=== PATIENT | male | born 1975 | race Caucasian/White ===

== ENCOUNTER 2019-02-11 15:41 | Day surgery (SDC) | payer SELFPAY ==
[2019-02-11] VITALS (10 sets, daily range): BP systolic 128–151; BP diastolic 82–104
[~2019-02-11] VITALS: Ht 170.2 cm; Wt 68.0 kg
[2019-02-11] MEDS ORDERED: fentaNYL INJECTION 100 MCG/2 ML AMP IVP STA (15:58)
[2019-02-11] MEDS ORDERED: KETOROLAC 30 MG/ML VIAL IVP STA (15:58)
[2019-02-11] MEDS ORDERED: NS IV 1000 ML 1,000 ML IV ONE (15:58)
[2019-02-11] MEDS ORDERED: ONDANSETRON 4 MG/2 ML (SDV) Z0FRAN IVP ONE (16:00)
[2019-02-11 16:05] LABS: BASOPHILS # (AUTO) 0.1 10^3/uL (0.0-0.1); BASOPHILS % (AUTO) 1 % (0-10); EOSINOPHILS # (AUTO) 0.2 10^3/uL (0.0-0.3); EOSINOPHILS % (AUTO) 2 % (0-10); HEMATOCRIT 48 % (40-54); HEMOGLOBIN 16.2 G/DL (13.3-17.7); LYMPHOCYTES # (AUTO) 3.9 X 10^3 (1.0-4.0); LYMPHOCYTES % (AUTO) 36 % (12-44); MEAN CORPUSCULAR HEMOGLOBIN 33 PG (25-34); MEAN CORPUSCULAR HGB CONC 34 G/DL (32-36); MEAN CORPUSCULAR VOLUME 96 FL (80-99); MEAN PLATELET VOLUME 11.1 FL (7.4-10.4); MONOCYTES # (AUTO) 0.9 X 10^3 (0.0-1.0); MONOCYTES % (AUTO) 8 % (0-12); NEUTROPHILS # (AUTO) 5.7 X 10^3 (1.8-7.8); NEUTROPHILS % (AUTO) 53 % (42-75); PLATELET COUNT 190 10^3/uL (130-400); WHITE BLOOD COUNT 10.8 10^3/uL (4.3-11.0)
--- NOTE | 2019-02-11 16:11 | ED GU-Male ---
General Chief Complaint: Back Problems Stated Complaint: LOWER BACK PAIN Nursing Triage Note: Pt presents to the ER with complaints of right sided flank/back pain 02/09 that started 4 hours ago. Pt has a history of kidney stones and reports having them summer. Pt also reports having urine hesitancy. Source: patient Exam Limitations: no limitations History of Present Illness Date Seen by Provider: Feb 11, 2019 Time Seen by Provider: 15:57 Initial Comments Here with right flank pain acute onset 4 hours ago. Radiates to the tip of his penis. States it feels like a kidney stone. Has had nausea but no vomiting. Denies any blood in his urine currently. Denies fever or chills. Timing/Duration: this afternoon Severity/Quality: moderate, severe, aching Location: right flank Radiation: urethral Activities at Onset: none Prior Genitourinary Problems: none Sexual [place] History: single partner Modifying Factors: Worsens With Urinating Associated Symptoms: abdominal pain, dysuria; No fever/chills Allergies and Home Medications Allergies Coded Allergies: No Known Drug Allergies (Unverified , 02/11/19) Patient Home Medication List Home Medication List Reviewed: Yes Review of Systems Review of Systems Constitutional: see HPI; No chills, No fever EENTM: no symptoms reported Respiratory: no symptoms reported Cardiovascular: no symptoms reported Gastrointestinal: abdominal pain; No diarrhea; nausea; No vomiting Genitourinary: flank pain; denies hematuria; pain Musculoskeletal: no symptoms reported Skin: no symptoms reported All Other Systemes Reviewed Negative Unless Noted: Yes Past Wuxyjvw-Emmkic-Rvpomf Hx Past Med/Social Hx: Reviewed Nursing Past Med/Soc Hx Patient Social History Alcohol Use: Denies Use Recreational Drug Use: No Smoking Status: Current Everyday Smoker Recent Foreign Travel: No Contact w/Someone Who Travel: No Recent Infectious Disease Expo: No Past Medical History Surgeries: No Respiratory: No Cardiac: No Neurological: No Genitourinary: Yes Kidney Stones Gastrointestinal: No Musculoskeletal: No Endocrine: No HEENT: No Cancer: No Psychosocial: No Family Medical History Reviewed Nursing Family Hx Physical Exam Vital Signs Vital Signs - First Documented 02/11/19 15:52 Temp 97.1 Pulse 100 Resp 18 B/P (MAP) 147/108 (121) Pulse Ox 97 Capillary Refill : Less Than 3 Seconds Height, Weight, BMI Height: 5'7.00" Weight: 150lbs. oz. 68.534256nv; BMI Method:Stated General Appearance: WD/WN, moderate distress HEENT: PERRL/EOMI, pharynx normal Neck: full range of motion, supple Cardiovascular: regular rate, rhythm, no murmur Respiratory: lungs clear, normal breath sounds Gastrointestinal: normal bowel sounds, soft, no pulsatile mass; No guarding, No rebound; tenderness (right lower quadrant and right flank) Male: normal genitalia, no hernia, inguinal tenderness (mild on right); No testicular tenderness Back: normal inspection, no CVA tenderness, no vertebral tenderness Extremities: non-tender, normal inspection Neurologic/Psychiatric: alert, oriented x 3 Skin: normal color, warm/dry Progress/Results/Core Measures Suspected Sepsis Recent Fever Within 48 Hours: No Infection Criteria Present: None New/Unexplained Altered Menta: No Sepsis Screen: No Definite Risk SIRS Temperature:97.1 Pulse: 100 Respiratory Rate: 18 Laboratory Tests 02/11/19 15:38: White Blood Count 10.8 Blood Pressure 147 /108 Mean: 121 Laboratory Tests 02/11/19 15:38: Creatinine 1.11, Platelet Count 190, Total Bilirubin 0.3 Results/Orders Lab Results Laboratory Tests Test 02/11/19 15:38 02/11/19 16:13 02/11/19 16:15 Range/Units White Blood Count 10.8 4.3-11.0 10^3/uL Red Blood Count 4.95 4.35-5.85 10^6/uL Hemoglobin 16.2 13.3-17.7 G/DL Hematocrit 48 40-54 % Mean Corpuscular Volume 96 80-99 FL Mean Corpuscular Hemoglobin 33 25-34 PG Mean Corpuscular Hemoglobin Concent 34 32-36 G/DL Red Cell Distribution Width 12.0 10.0-14.5 % Platelet Count 190 130-400 10^3/uL Mean Platelet Volume 11.1 H 7.4-10.4 FL Neutrophils (%) (Auto) 53 42-75 % Lymphocytes (%) (Auto) 36 12-44 % Monocytes (%) (Auto) 8 0-12 % Eosinophils (%) (Auto) 2 0-10 % Basophils (%) (Auto) 1 0-10 % Neutrophils # (Auto) 5.7 1.8-7.8 X 10^3 Lymphocytes # (Auto) 3.9 1.0-4.0 X 10^3 Monocytes # (Auto) 0.9 0.0-1.0 X 10^3 Eosinophils # (Auto) 0.2 0.0-0.3 10^3/uL Basophils # (Auto) 0.1 0.0-0.1 10^3/uL Sodium Level 141 135-145 MMOL/L Potassium Level 4.3 3.6-5.0 MMOL/L Chloride Level 105 98-107 MMOL/L Carbon Dioxide Level 25 21-32 MMOL/L Anion Gap 11 5-14 MMOL/L Blood Urea Nitrogen 8 7-18 MG/DL Creatinine 1.11 0.60-1.30 MG/DL Estimat Glomerular Filtration Rate > 60 BUN/Creatinine Ratio 7 Glucose Level 85 70-105 MG/DL Calcium Level 10.0 8.5-10.1 MG/DL Corrected Calcium 8.5-10.1 MG/DL Total Bilirubin 0.3 0.1-1.0 MG/DL Aspartate Amino Transf (AST/SGOT) 29 5-34 U/L Alanine Aminotransferase (ALT/SGPT) 59 H 0-55 U/L Alkaline Phosphatase 98 40-136 U/L Total Protein 8.0 6.4-8.2 GM/DL Albumin 5.0 H 3.2-4.5 GM/DL C-Reactive Protein High Sensitivity 0.12 0.00-0.50 MG/DL Urine Color YELLOW Urine Clarity CLEAR Urine pH 6 5-9 Urine Specific [place] 1.010 L 1.016-1.022 Urine Protein NEGATIVE NEGATIVE Urine Glucose (UA) NEGATIVE NEGATIVE Urine Ketones NEGATIVE NEGATIVE Urine Nitrite NEGATIVE NEGATIVE Urine Bilirubin NEGATIVE NEGATIVE Urine Urobilinogen NORMAL NORMAL MG/DL Urine Leukocyte Esterase NEGATIVE NEGATIVE Urine RBC (Auto) NEGATIVE NEGATIVE Urine RBC NONE /HPF Urine WBC RARE /HPF Urine Squamous Epithelial Cells RARE /HPF Urine Crystals NONE /LPF Urine Bacteria NEGATIVE /HPF Urine Casts NONE /LPF Urine Mucus NEGATIVE /LPF Urine Culture Indicated NO My Orders Orders - OTIS VALDEZ MD Cbc With Automated Diff (02/11/19 15:58) Comprehensive Metabolic Panel (02/11/19 15:58) Ua Culture If Indicated (02/11/19 15:58) Ed Iv/Invasive Line Start (02/11/19 15:58) Ns Iv 1000 Ml (Sodium Chloride 0.9%) (02/11/19 15:58) Fentanyl Injection (Sublimaze Injection (02/11/19 15:58) Ketorolac Injection (Toradol Injection) (02/11/19 15:58) Abdomen/Kub 1view (02/11/19 15:58) Ct Abd/Pelvis Wo(Kidney Stone) (02/11/19 15:58) Ondansetron Injection (Zofran Injectio (02/11/19 16:00) Hs C Reactive Protein (02/11/19 16:55) Lorazepam (02/11/19 17:40) Lorazepam Injection (Ativan Injection) (02/11/19 17:45) Medications Given in ED Current Medications Medications Dose Ordered Sig/Temo Route Start Time Stop Time Status Last Admin Dose Admin Ondansetron HCl 4 mg ONCE ONCE IVP 02/11/19 16:00 02/11/19 16:02 DC 02/11/19 16:13 4 MG Sodium Chloride 1,000 ml @ 0 mls/hr Q0M ONCE IV 02/11/19 15:58 02/11/19 16:02 DC 02/11/19 16:13 1,000 MLS/HR Vital Signs/I&O 02/11/19 15:52 Temp 97.1 Pulse 100 Resp 18 B/P (MAP) 147/108 (121) Pulse Ox 97 Capillary Refill : Less Than 3 Seconds Blood Pressure Mean: 121 Progress Note : Progress Note Seen and evaluated. IV, labs, UA, normal saline 1 L bolus, Zofran 4 mg IV, Toradol 30 mg IV and fentanyl [address] abdomen and pelvis kidney stone protocol ordered as well as KUB. Monitor patient. 1740: I have talked at length with the patient. CT does not show stones. There is concern for inflammation at the base of the appendix and potentially the tip but not outside of normal limits currently. I did discuss this with the surgeon on-call, Dr. Kelly. We have repeated the films together. Patient is still in moderate pain at 6 out of 10 after pain medicines. He has had pain that has been intermittent over the last couple of months. Certainly much worse today. There is no findings for kidney stones at all. I do have concerns about his appendix. Dr. Kelly does as well. This was discussed with the patient and ultimately the patient will be taken to the OR for appendectomy given his pain and findings. Dr. Kelly will come in. Our crew has been called. Patient is in agreement with the plan as well as his . Diagnostic Imaging Diagonstic Imaging: CT Plain Films/CT/US/NM/MRI: abdomen, pelvis Comments NAME: ANTONIO DUMAS [facility] REC#: [id number] PT STATUS: REG ER : 1975 PHYSICIAN: OTIS VALDEZ MD ADMIT DATE: 02/11/19/ER Draft Date of Exam:02/11/19 CT ABD/PELVIS WO(KIDNEY STONE) PROCEDURE: CT urinary tract, rule out kidney stone. TECHNIQUE: Multiple contiguous axial images were obtained through the abdomen and pelvis without the use of intravenous contrast. Auto Exposure Controls were utilized during the CT exam to meet ALARA standards for radiation dose reduction. INDICATION: Right-sided flank pain. No hematuria. CORRELATION STUDY: None. FINDINGS: LOWER THORAX: Clear. LIVER: Unremarkable. GALLBLADDER: Present and unremarkable. No bile duct dilatation. SPLEEN: Unremarkable. PANCREAS: Unremarkable. ADRENAL GLANDS: Unremarkable. KIDNEYS: Normal configuration. No calcification or obstruction. ABDOMINAL AORTA: Unremarkable, nonaneurysmal. GASTROINTESTINAL TRACT: Stomach is decompressed with resultant gastric wall thickening. Small bowel with a few fluid-filled loops of bowel but nonobstructed in its appearance. Colon is unremarkable with normal appendix in the right lower quadrant. No abdominal ascites or free air. URINARY BLADDER: Unremarkable. REPRODUCTIVE: Prostate gland is unremarkable. OSSEOUS STRUCTURES: No acute abnormality. OTHER: None. IMPRESSION: 1. Negative for acute abnormality of the abdomen or pelvis on noncontrast CT imaging. Dictated on workstation # [id number] Dict: 02/11/19 1638 Trans: 02/11/19 1700 [id number] Interpreted by: ROMELIA GREEN DO Electronically signed by: Diagonstic Imaging: Xray Plain Films/CT/US/NM/MRI: abdomen Comments NAME: ANTONIO DUMAS [facility] REC#: [id number] PT STATUS: REG ER : 1975 PHYSICIAN: OTIS VALDEZ MD ADMIT DATE: 02/11/19/ER Signed Date of Exam: 02/11/19 ABDOMEN/KUB 1VIEW INDICATION: Right flank pain today. TECHNIQUE: Single supine view of the abdomen at 04:28 p.m. CORRELATION STUDY: None. FINDINGS: Imaging of the abdomen demonstrates the bowel gas pattern to be unremarkable and without evidence for obstruction. No significant differential air-fluid levels. No evidence for free air. No pathologic intra-abdominal calcifications. IMPRESSION: 1. Unremarkable appearing single supine view of the abdomen. Dictated by: Dictated on workstation # [id number] Dict: 02/11/19 1645 Trans: 02/11/19 1719 Interpreted by: ROMELIA GREEN DO Electronically signed by: ROMELIA GREEN DO 02/11/19 1719 Departure Communication (Admissions) Time/Spoke to Admitting Phy: 17:42 Impression Primary Impression: Appendicitis Qualified Codes: K35.30 - Acute appendicitis with localized peritonitis, without perforation or gangrene Disposition: ADMITTED INPATIENT Condition: Stable Admissions Decision to Admit Reason: Admit from ER (General) Decision to Admit/Date: Feb 11, 2019 Time/Decision to Admit Time: 17:42 Departure-Patient Inst. Referrals: NO,LOCAL PHYSICIAN (PCP/Family) Primary Care Physician OTIS VALDEZ MD Feb 11, 2019 16:11
[2019-02-11 16:25] LABS: ALANINE AMINOTRANSFERASE 59 U/L (0-55); ALKALINE PHOSPHATASE 98 U/L (40-136); BILIRUBIN,TOTAL 0.3 MG/DL (0.1-1.0); BUN/CREATININE RATIO 7; CARBON DIOXIDE 25 MMOL/L (21-32); CHLORIDE 105 MMOL/L (98-107); CREATININE SERUM 1.11 MG/DL (0.60-1.30); GFR ESTIMATED > 60; GLUCOSE 85 MG/DL (70-105); POTASSIUM 4.3 MMOL/L (3.6-5.0); SODIUM 141 MMOL/L (135-145)
[2019-02-11 16:27] LABS: BILIRUBIN,URINE NEGATIVE (NEGATIVE); CLARITY,URINE CLEAR; COLOR,URINE YELLOW; GLUCOSE, URINE (UA) NEGATIVE (NEGATIVE); KETONES,URINE NEGATIVE (NEGATIVE); LEUKOCYTE ESTERASE ,URINE NEGATIVE (NEGATIVE); NITRITE,URINE NEGATIVE (NEGATIVE); PH,URINE 6 (5-9); PROTEIN,URINE NEGATIVE (NEGATIVE); UROBILINOGEN,URINE NORMAL (NORMAL)
[2019-02-11 16:40] LABS: BACTERIA,URINE NEGATIVE /HPF; SQUAMOUS EPITHELIAL CELL,UR RARE /HPF; WBC,URINE RARE /HPF
--- NOTE | 2019-02-11 16:52 | Diagnostic Imaging Report ---
INDICATION: Right flank pain today. TECHNIQUE: Single supine view of the abdomen at 04:28 p.m. CORRELATION STUDY: None. FINDINGS: Imaging of the abdomen demonstrates the bowel gas pattern to be unremarkable and without evidence for obstruction. No significant differential air-fluid levels. No evidence for free air. No pathologic intra-abdominal calcifications. IMPRESSION: 1. Unremarkable appearing single supine view of the abdomen. Dictated by: Dictated on workstation # [id number]
--- NOTE | 2019-02-11 17:01 | Diagnostic Imaging Report ---
PROCEDURE: CT urinary tract, rule out kidney stone. TECHNIQUE: Multiple contiguous axial images were obtained through the abdomen and pelvis without the use of intravenous contrast. Auto Exposure Controls were utilized during the CT exam to meet ALARA standards for radiation dose reduction. INDICATION: Right-sided flank pain. No hematuria. CORRELATION STUDY: None. FINDINGS: LOWER THORAX: Clear. LIVER: Unremarkable. GALLBLADDER: Present and unremarkable. No bile duct dilatation. SPLEEN: Unremarkable. PANCREAS: Unremarkable. ADRENAL GLANDS: Unremarkable. KIDNEYS: Normal configuration. No calcification or obstruction. ABDOMINAL AORTA: Unremarkable, nonaneurysmal. GASTROINTESTINAL TRACT: Stomach is decompressed with resultant gastric wall thickening. Small bowel with a few fluid-filled loops of bowel but nonobstructed in its appearance. Colon is unremarkable with normal appendix in the right lower quadrant. No abdominal ascites or free air. URINARY BLADDER: Unremarkable. REPRODUCTIVE: Prostate gland is unremarkable. OSSEOUS STRUCTURES: No acute abnormality. OTHER: None. IMPRESSION: 1. Negative for acute abnormality of the abdomen or pelvis on noncontrast CT imaging. Dictated by: Dictated on workstation # [id number]
[2019-02-11] MEDS ORDERED: LORazepam INJ 2 MG/ML (ATIVAN) VIAL IVP ONE (17:45)
[2019-02-11] MEDS ORDERED: MIDAZOLAM 2 MG/2 ML (VERSED) VIAL ONE (17:55)
[2019-02-11] MEDS ORDERED: fentaNYL INJECTION 100 MCG/2 ML AMP ONE (17:55)
[2019-02-11] MEDS ORDERED: BUP/EPI 0.5% 1:200,000 (SENSORCAINE) 30 ML VIAL ONE (18:04)
[2019-02-11] MEDS ORDERED: LACTATED RINGERS 1,000 ML IV PRN (18:09)
[2019-02-11] MEDS ORDERED: morphine INJ 10 MG/ML 1ML (SYR OR VIAL) IVP ONE (18:15)
[2019-02-11] MEDS ORDERED: MEPERIDINE (DEMEROL) INJ 50 MG/ML IVP ONE (18:15)
[2019-02-11] MEDS ORDERED: fentaNYL INJECTION 100 MCG/2 ML AMP IVP ONE (18:15)
[2019-02-11] MEDS ORDERED: ONDANSETRON 4 MG/2 ML (SDV) Z0FRAN IVP PRN (18:15)
[2019-02-11] MEDS ORDERED: ceFAZolin INJECTION 1,000 MG ONE (18:54)
[2019-02-11] MEDS ORDERED: metroNIDAZOLE 500MG/100ML IVPB 100 ML ONE (18:54)
--- NOTE | 2019-02-11 18:55 | History & Physical-Surgical ---
History of Present Illness History of Present Illness Reason for visit/HPI seen and evaluated in ed per request of Dr. Cardozo for rlq abd pain. 43 year old male that began having pain in rlq about 1130 today. Patient having moderate pain. Worse in some positions. Nothing really making it worse. He rated 10/10 now about 7/10. Has had intermittent pain on and off last few months. Pain radiates down into penis. Patient had ct scan that I along with Dr. Cardozo reviewed and appears to may have an appendicolith and some thckening of a small portion of the appendix. He is still in pain. Denies n/v fever sweats chills shortness of breath or chest pain at this time. Date of Admission t Date Seen by a Provider: Feb 11, 2019 Time Seen by a Provider: 18:56 I consulted on this patient on 02/11/19 18:48 Attending Physician Denny Kelly DO, FACOS Admitting Physician No,Local Physician Consult Allergies and Home Medications Allergies Coded Allergies: No Known Drug Allergies (Unverified , 02/11/19) Patient Home Medication List Home Medication List Reviewed: Yes Past Wbzkxao-Echfyd-Ozyrsk Hx Patient Social History Alcohol Use: Denies Use Recreational Drug Use: No Smoking Status: Current Everyday Smoker 2nd Hand Smoke Exposure: No Recent Foreign Travel: No Contact w/Someone Who Travel: No Recent Infectious Disease Expo: No Recent Hopitalizations: No Seasonal Allergies Seasonal Allergies: No Surgeries History of Surgeries: No Surgeries: Orthopedic Respiratory History of Respiratory Disorde: No Cardiovascular History of Cardiac Disorders: No Neurological History of Neurological Disord: No Genitourinary History of Genitourinary Disor: Yes Genitourinary Disorders: Kidney Stones Gastrointestinal History of Gastrointestinal Di: No Gastrointestinal Disorders: Hiatal Hernia Musculoskeletal History of Musculoskeletal Dis: No Endocrine History of Endocrine Disorders: No HEENT History of HEENT Disorders: No Cancer History of Cancer: No Psychosocial History of Psychiatric Problem: No Blood Transfusions History of Blood Disorders: No Family Medical History Significant Family History: No Pertinent Family Hx Review of Systems Constitutional: no symptoms reported EENTM: no symptoms reported Respiratory: no symptoms reported Cardiovascular: no symptoms reported Gastrointestinal: see HPI Genitourinary: no symptoms reported Musculoskeletal: no symptoms reported Skin: no symptoms reported Psychiatric/Neurological: No Symptoms Reported Physical Exam Vital Signs Vital Signs - First Documented 02/11/19 15:52 Temp 97.1 Pulse 100 Resp 18 B/P (MAP) 147/108 (121) Pulse Ox 97 Capillary Refill : Less Than 3 Seconds Height, Weight, BMI Height: 5'7.00" Weight: 150lbs. oz. 68.975999ya; BMI Method:Stated General Appearance: No Apparent Distress, Anxious HEENT: PERRL/EOMI Neck: Normal Inspection, Non Tender Respiratory: Chest Non Tender, No Accessory Muscle Use, No Respiratory Distress Cardiovascular: Regular Rate, Rhythm Gastrointestinal: Soft, Tenderness (right lower quadrant, no guarding or rebounding.) Rectal: Deferred Back: No CVA Tenderness Extremity: Normal Inspection, Non Tender Neurologic/Psychiatric: Alert, Oriented x3, No Motor/Sensory Deficits, Normal Mood/Affect, rehabilitation therapy aide II-XII Norm as Tested Skin: Normal Color, Warm/Dry Lymphatic: No Adenopathy Data Review Labs Laboratory Tests 02/11/19 15:38: White Blood Count 10.8, Red Blood Count 4.95, Hemoglobin 16.2, Hematocrit 48, Mean Corpuscular Volume 96, Mean Corpuscular Hemoglobin 33, Mean Corpuscular Hemoglobin Concent 34, Red Cell Distribution Width 12.0, Platelet Count 190, Mean Platelet Volume 11.1H, Neutrophils (%) (Auto) 53, Lymphocytes (%) (Auto) 36, Monocytes (%) (Auto) 8, Eosinophils (%) (Auto) 2, Basophils (%) (Auto) 1, Neutrophils # (Auto) 5.7, Lymphocytes # (Auto) 3.9, Monocytes # (Auto) 0.9, Eosinophils # (Auto) 0.2, Basophils # (Auto) 0.1, Sodium Level 141, Potassium Level 4.3, Chloride Level 105, Carbon Dioxide Level 25, Anion Gap 11, Blood Urea Nitrogen 8, Creatinine 1.11, Estimat Glomerular Filtration Rate > 60, BUN/Creatinine Ratio 7, Glucose Level 85, Calcium Level 10.0, Corrected Calcium , Total Bilirubin 0.3, Aspartate Amino Transf (AST/SGOT) 29, Alanine Aminotransferase (ALT/SGPT) 59H, Alkaline Phosphatase 98, Total Protein 8.0, Albumin 5.0H 02/11/19 15:58: 02/11/19 16:13: C-Reactive Protein High Sensitivity 0.12 02/11/19 16:15: Urine Color YELLOW, Urine Clarity CLEAR, Urine pH 6, Urine Specific [place] 1.010L, Urine Protein NEGATIVE, Urine Glucose (UA) NEGATIVE, Urine Ketones NEGATIVE, Urine Nitrite NEGATIVE, Urine Bilirubin NEGATIVE, Urine Urobilinogen NORMAL, Urine Leukocyte Esterase NEGATIVE, Urine RBC (Auto) NEGATIVE, Urine RBC NONE, Urine WBC RARE, Urine Squamous Epithelial Cells RARE, Urine Crystals NONE, Urine Bacteria NEGATIVE, Urine Casts NONE, Urine Mucus NEGATIVE, Urine Culture Indicated NO Assessment/Plan Assessment/Plan Admission Diagonsis rlq abdominal pain possible appendicitis physical exam consistent with appendicitis, ct scan reviewed and may have area consistent with appendicitis i discussed risks and benefits of lap appy all other indicated procedures with patient who understands that he may have a normal appendix as well he wishes to proceed to OR for intervention Admission Status: Observation Assessment/Plan rlq abdominal pain possible appendicitis physical exam consistent with appendicitis, ct scan reviewed and may have area consistent with appendicitis i discussed risks and benefits of lap appy all other indicated procedures with patient who understands that he may have a normal appendix as well he wishes to proceed to OR for intervention DENNY KELLY DO Feb 11, 2019 18:55
[2019-02-11] MEDS ORDERED: LACTATED RINGERS 1,000 ML IV SCH (19:00)
[2019-02-11] MEDS ORDERED: ceFAZolin INJECTION 1,000 MG in WATER (STERILE) FOR INJECTION 10 ML IV ONE (19:00)
[2019-02-11] MEDS ORDERED: metroNIDAZOLE 500MG/100ML IVPB IV ONE (19:00)
[2019-02-11] MEDS ORDERED: proPOfol 200 MG/20 ML (DIPRIVAN) VIAL IV ONE (19:23)
[2019-02-11] MEDS ORDERED: LIDOCAINE PF 2% 5 ML (XYLOCAINE) VIAL ONE (19:23)
[2019-02-11] MEDS ORDERED: SUCCINYLCHOLINE INJ 100 MG/5 ML SYR ONE (19:23)
[2019-02-11] MEDS ORDERED: ROCURONIUM 10 MG/ML 5 ML SYRINGE IV ONE (19:23)
[2019-02-11] MEDS ORDERED: SEVOFLURANE (ULTANE) 15 ML INHAL SOLN ONE ×2 (19:23→19:59)
[2019-02-11] MEDS ORDERED: ONDANSETRON 4 MG/2 ML (SDV) Z0FRAN ONE ×2 (19:23→19:45)
[2019-02-11] MEDS ORDERED: GLYCOPYRROLATE 0.2 MG/ML (ROBINUL) 2 ML VIAL ONE (19:50)
[2019-02-11] MEDS ORDERED: NEOSTIGMINE 3 MG/3 ML VIAL ONE (19:50)
[2019-02-11] MEDS ORDERED: DOCU-143 PO (19:56)
[2019-02-11] MEDS ORDERED: ACHD5005 PO (19:56)
--- NOTE | 2019-02-11 19:56 | Progress Note-Post Operative ---
Post-Operative Progess Note Surgeon (s)/Data Technician (s) Surgeon DENNY GUZMAN DO Data Technician: na Pre-Operative Diagnosis rlq abd pain Post-Operative Diagnosis slight rigid appendix Procedure & Operative Findings Date of Procedure 02/11/19 Procedure Performed/Findings lap appendectomy Anesthesia Type gen Estimated Blood Loss Estimated blood loss (mL): min Specimens/Packing Specimens Removed appendix DENNY GUZMAN DO Feb 11, 2019 19:56
--- NOTE | 2019-02-11 19:58 | Discharge Inst-Simple/Standard ---
Discharge Inst-Standard Discharge Medications New, Converted or Re-Newed RX: RX on Chart Patient Instructions/Follow Up Plan of Care/Instructions/FU: 2 weeks Kelly Activity as Tolerated: No Discharge Diet: Regular Diet Other Inst to Patient Follow up Appt: Make appointment for 2 week. Instructions: No lifting greater than 10 pounds. No strenuous activity. May shower in 24 hours, no tub bath or soaking. Use incentive spirometer at home as directed. No Smoking Skin/Wound Care: You have special glue over incisions it will fall off on its own. Symptoms to Report: Appetite Changes, Extremity Discoloration, Numbness/Tingling, Swelling Increased, Bleeding Excessive, Eyesight Changes, Pain Increased, Urine Color Change, Constipation(Persistent), Fever over 101 degree F, Pain/Pressure in chest, Urinating Difficulty, Cough Up/Vomit Blood, Heart Beat Irreg/Pounding, Pain/Pressure in jaw, Vaginal Bleeding Increase, Cramps in feet or legs, Lightheadedness, Pain/Pressure in shoulder, Diarrhea(Persistent), Memory Changes Suddenly, Questions/Concerns, Weight gain consecutive days, Dizziness/Fainting, Nausea/Vomiting, Shortness of Breath, Weight gain over 2 pounds If questions or concerns contact your physician Or seek help at emergency department. DENNY KELLY DO Feb 11, 2019 19:58
--- NOTE | 2019-02-11 21:43 | NUR ---
ANTONIO DUMAS admitted to room 416 , with an admitting diagnosis of APPENDECTOMY , on 02/11/19 from PACU via BED, accompanied by STAFF AND SIGNIFICANT OTHER .ANTONIO DUMAS introduced to surroundings, call light, bed controls, phone, TV, temperature control, lights, meal times, smoking policy, visitor policy, side rail policy, bathrooms and showers.
--- NOTE | 2019-02-11 22:43 | NUR ---
PATIENT D/C'D TO HOME AT THIS TIME. IV D/C'D, CATHETER INTACT, NO BLEEDING NOTED AT SITE. D/C INSTRUCTIONS EXPLAINED TO PATIENT, PATIENT ACKNOWLEDGED UNDERSTANDING. PATIENT TAKEN TO PRIVATE VEHICLE VIA WHEELCHAIR ACCOMPANIED BY STAFF AND S.O.
--- NOTE | 2019-02-12 02:26 | OPERATIVE REPORT ---
DATE OF SERVICE: 02/11/2019 PREOPERATIVE DIAGNOSIS: Right lower quadrant abdominal pain. POSTOPERATIVE DIAGNOSIS: Rigid appendix. PROCEDURE: Laparoscopic appendectomy. SURGEON: Denny Kelly DO ANESTHESIA: General. ESTIMATED BLOOD LOSS: Minimal. COMPLICATIONS: None. INDICATIONS: The patient is a 43-year-old male, who presented to Emergency Department with right lower quadrant abdominal pain. The patient had a CT scan, which essentially normal, but there was question of appendicolith and maybe small area of the appendix that looks a little bit thickened. We discussed risks and benefits of procedure and possibility of normal appendix. He understands and wishes to proceed. Consent was signed and on the chart. DESCRIPTION OF PROCEDURE: The patient was taken to the operating suite. He was prepped and draped in sterile fashion. Surgical pause was performed. A 5 mm incision made at the umbilicus. Cautery was used to dissect down to the fascia, was grasped and elevated. A Veress needle inserted in the abdomen and pneumoperitoneum was achieved. Under direct visualization of the laparoscope, a 5 mm trocar was then placed. Under direct visualization of the laparoscope, a 5 mm trocar was placed in the suprapubic region and a 12 mm trocar was placed in left lower quadrant. The appendix was then located. No significant erythematous changes, but about mid portion of the appendix did feel rigid. The [place] was used to dissect around the appendix at the base and the Endo-BENJAMÍN 2.5 stapler was fired across the base of the appendix and a 2.0 reload was fired across the mesoappendix. We placed an Endobag and removed through the 12 mm trocar site. The abdomen was reinspected. No other pathology noted. The 12 mm trocar was then removed and 0 Vicryl with Endoclose was used to close the fascial defect. The abdomen was then desufflated and the trocars were removed. The skin was then closed using 4-0 Monocryl in subcuticular fashion. The patient tolerated procedure well without any complications. He was taken to recovery room in stable condition. Job ID: [id number] DocumentID: [id number] Dictated Date: 02/11/2019 20:04:06 Data Architect Manager Date: 02/12/2019 02:25:18 Dictated By: DENNY KELLY DO [facility]
--- NOTE | 2019-02-12 12:56 | Anesthesia-General Post-Op ---
General Patient Condition Mental Status/LOC: Same as Preop Cardiovascular: Satisfactory Nausea/Vomiting: Absent Respiratory: Satisfactory Pain: Controlled Complications: Absent Post Op Complications Complications None Follow Up Care/Instructions Patient Instructions None needed. Anesthesia/Patient Condition Patient Condition Patient is doing well, no complaints, stable vital signs, no apparent adverse anesthesia problems. No complications reported per nursing. JERSEY PAGAN CRNA Feb 12, 2019 12:56
== END 2019-02-11 22:45 | disposition home or self-care (01) ==
LOC: ER 15:43 → EDBD 15:43 → SDC 18:07
PROVIDERS: ATTEND Surgery
DX: K36 Other appendicitis (principal); F17.210 Nicotine dependence, cigarettes, uncomplicated; Z87.442 Personal history of urinary calculi
CPT/HCPCS: 36415; 74018; 74176; 80053; 80346; 81000; 85025; 86141; 96361; 96374; 96375

== ENCOUNTER 2020-02-21 17:22 | Emergency (ER) | payer SELFPAY ==
[~2020-02-21] VITALS: Ht 168 cm; Wt 64.0 kg
[~2020-02-21 17:22] MED LIST: ACHD5005 PO; DOCU-143 PO
[2020-02-21] MEDS ORDERED: KETOROLAC 30 MG/ML VIAL IVP ONE (18:00)
[2020-02-21] MEDS ORDERED: NS IV 1000 ML 1,000 ML IV SCH (18:00)
[2020-02-21 18:05] LABS: BILIRUBIN,URINE NEGATIVE (NEGATIVE); CLARITY,URINE CLEAR; COLOR,URINE YELLOW; GLUCOSE, URINE (UA) NEGATIVE (NEGATIVE); KETONES,URINE NEGATIVE (NEGATIVE); LEUKOCYTE ESTERASE ,URINE NEGATIVE (NEGATIVE); NITRITE,URINE NEGATIVE (NEGATIVE); PROTEIN,URINE NEGATIVE (NEGATIVE)
[2020-02-21 18:15] LABS: BACTERIA,URINE TRACE /HPF; RBC,URINE RARE /HPF; SQUAMOUS EPITHELIAL CELL,UR RARE /HPF
[2020-02-21 18:16] LABS: BASOPHILS % (AUTO) 0 % (0-10); EOSINOPHILS # (AUTO) 0.1 10^3/uL (0.0-0.3); EOSINOPHILS % (AUTO) 1 % (0-10); HEMATOCRIT 47 % (40-54); HEMOGLOBIN 16.5 G/DL (13.3-17.7); LYMPHOCYTES # (AUTO) 2.6 X 10^3 (1.0-4.0); LYMPHOCYTES % (AUTO) 24 % (12-44); MEAN CORPUSCULAR HEMOGLOBIN 33 PG (25-34); MEAN CORPUSCULAR HGB CONC 35 G/DL (32-36); MEAN CORPUSCULAR VOLUME 95 FL (80-99); MEAN PLATELET VOLUME 11.2 FL (7.4-10.4); MONOCYTES # (AUTO) 0.7 X 10^3 (0.0-1.0); MONOCYTES % (AUTO) 6 % (0-12); NEUTROPHILS # (AUTO) 7.4 X 10^3 (1.8-7.8); NEUTROPHILS % (AUTO) 69 % (42-75); PLATELET COUNT 190 10^3/uL (130-400); RED CELL DISTRIBUTION WIDTH 12.2 % (10.0-14.5); WHITE BLOOD COUNT 10.8 10^3/uL (4.3-11.0)
[2020-02-21 18:21] LABS: ALBUMIN 4.5 GM/DL (3.2-4.5)
[2020-02-21 18:22] LABS: CHLORIDE 108 MMOL/L (98-107); POTASSIUM 3.8 MMOL/L (3.6-5.0); SODIUM 140 MMOL/L (135-145)
[2020-02-21 18:23] LABS: AMYLASE 54 U/L (25-125); CALCIUM 9.2 MG/DL (8.5-10.1)
[2020-02-21 18:24] LABS: GLUCOSE 110 MG/DL (70-105); TOTAL PROTEIN 7.4 GM/DL (6.4-8.2)
[2020-02-21 18:25] LABS: CARBON DIOXIDE 21 MMOL/L (21-32)
[2020-02-21 18:26] LABS: BILIRUBIN,TOTAL 0.6 MG/DL (0.1-1.0)
[2020-02-21 18:28] LABS: ALKALINE PHOSPHATASE 79 U/L (40-136); CREATININE SERUM 0.99 MG/DL (0.60-1.30); GFR ESTIMATED > 60
[2020-02-21 18:29] LABS: BUN/CREATININE RATIO 15
[2020-02-21 18:31] LABS: ALANINE AMINOTRANSFERASE 37 U/L (0-55); LIPASE 26 U/L (8-78)
[2020-02-21] MEDS ORDERED: fentaNYL INJECTION 100 MCG/2 ML AMP IVP ONE (18:45)
--- NOTE | 2020-02-21 18:45 | Diagnostic Imaging Report ---
Indication: Right-sided flank pain. Patient has history of kidney stones. Time of Exam 6:44 PM Correlation is made with abdominal radiograph from 02/11/2019. Bowel gas pattern is unremarkable. Pelvic calcifications are unchanged and likely phleboliths. No definite urinary tract calculi are seen. IMPRESSION: Stable KUB. No acute feature is detected. Dictated by: Dictated on workstation # [id number]
--- NOTE | 2020-02-21 18:49 | Diagnostic Imaging Report ---
PROCEDURE: CT urinary tract, rule out kidney stone. TECHNIQUE: Multiple contiguous axial images were obtained through the abdomen and pelvis without the use of intravenous contrast. Auto Exposure Controls were utilized during the CT exam to meet ALARA standards for radiation dose reduction. INDICATION: Right-sided flank pain hematuria The previous CT abdomen/pelvis exam of 02/11/2019 failed to show any sign of an acute abnormality of the abdomen or pelvis. In the interval since the prior exam, a minute nonobstructive calculus has developed in the midportion of the left kidney. This measures approximately 2 mm in size. There is still no clear evidence for nephrolithiasis on the right. In addition, there is no evidence for urolithiasis and the kidneys do not appear to be obstructed. However the images through the low pelvis do show a minute 1 mm calcific like density within the bladder just to the left of midline. This could represent a recently passed calculus (image 95 of 112). There is also a similar size faint calcific density near the ureterovesical junction on the right (image 96 of 112). This is questionable for a minute calculus, as well. There is another similar sized calculus apparently within the distal right ureter (image 97 of 112). There is no acute abnormality of the abdomen or pelvis noted otherwise. However in the interval since the prior exam, the patient has undergone an appendectomy. There is no pelvic mass or free fluid collection evident. The prostate gland is not enlarged. The liver, spleen, pancreas, adrenals, gallbladder, aorta and inferior vena cava are unremarkable for an acute abnormality. The stomach is partially filled with fluid and difficult to assess. The lung bases are clear. The bone windows are unremarkable for a fracture or for a destructive lesion. IMPRESSION: 1. There is a minute nonobstructive calculus within the left kidney. There is also a question a few tiny 1 mm calcifications within the bladder and distal right ureter, as described above. 2. There is no acute abnormality of the abdomen or pelvis noted otherwise. 3. There has been an interval appendectomy. Dictated by: Dictated on workstation # [id number]
[2020-02-21] MEDS ORDERED: SULF1TAB35 PO (19:33)
[2020-02-21] MEDS ORDERED: HYDR-83 PO (19:33)
--- NOTE | 2020-02-21 19:34 | ED Abdominal Pain ---
General Chief Complaint: Abdominal/GI Problems Stated Complaint: DIFFICULTY URINATING, PAINFUL TO URINATE Nursing Triage Note: PT STATES RT SIDE PAIN STATES "END OF MY URETHRA FEELS LIKE IT'S BURNING" HURTS TO PEE, FEELS NAUSEOUS. HX OF KIDNEY STONES. Sepsis Screen: No Definite Risk Source of Information: Patient Exam Limitations: No Limitations History of Present Illness Date Seen by Provider: Feb 21, 2020 Time Seen by Provider: 17:57 Initial Comments 44-year-old male who presents to emergency room with complaints of right flank pain and painful urination. Patient reports that he has these symptoms when he has a kidney stone reports that feels just like this. He denies any fevers or vomiting. He does report mild nausea due to the pain. Timing/Duration: 4-6 Hours Severity/Quality: Burning Radiation: Flank Associated Symptoms: Nausea/Vomiting Allergies and Home Medications Allergies Coded Allergies: No Known Drug Allergies (Unverified , 02/11/19) Home Medications Docusate Sodium 100 Mg Capsule, 100 MG PO BID Prescribed by: DENNY GUZMAN on 02/11/191955 Hydrocodone Bit/Acetaminophen 1 Tab Tab, 1-2 TAB PO Q6H PRN for PAIN-MODERATE Prescribed by: DENNY GUZMAN on 02/11/191955 Hydrocodone/Acetaminophen 1 Each Tablet, 1 EACH PO Q6H PRN for PAIN-MILD (1-4) Prescribed by: LSYSA BARGER on 02/21/201932 Sulfamethoxazole/Trimethoprim 1 Each Tablet, 1 EACH PO BID Prescribed by: LYSSA BARGER on 02/21/201932 Patient Home Medication List Home Medication List Reviewed: Yes Review of Systems Review of Systems Constitutional: see HPI; No chills, No fever Genitourinary: See HPI, Burning, Flank Pain All Other Systems Reviewed Negative Unless Noted: Yes Past Csqcmbh-Ualito-Dkuqix Hx Past Med/Social Hx: Reviewed Nursing Past Med/Soc Hx Patient Social History Alcohol Use: Denies Use Recreational Drug Use: No Smoking Status: Current Everyday Smoker Type Used: Cigarettes 2nd Hand Smoke Exposure: No Recent Foreign Travel: No Contact w/Someone Who Travel: No Recent Infectious Disease Expo: No Recent Hopitalizations: No Physical Abuse: No Sexual Abuse: No Mistreated: No Fear: No Seasonal Allergies Seasonal Allergies: No Past Medical History Surgeries: Yes (LT ROTATOR CUFF, HERNIA) Abdominal, Appendectomy, Orthopedic Respiratory: No Cardiac: No Neurological: No Genitourinary: Yes Kidney Stones, UTI-Chronic Gastrointestinal: No Hiatal Hernia Musculoskeletal: No Endocrine: No HEENT: No Cancer: No Psychosocial: No Blood Disorders: No Family Medical History Reviewed Nursing Family Hx No Pertinent Family Hx Physical Exam Vital Signs Vital Signs - First Documented 02/21/20 17:45 Temp 36.8 Pulse 125 Resp 22 B/P (MAP) 139/91 (107) Pulse Ox 99 O2 Delivery Room Air Capillary Refill : Less Than 3 Seconds Height/Weight/BMI Height: 5'7.00" Weight: 150lbs. oz. 68.685642ck; 22.00 BMI Method:Stated General Appearance: WD/WN, no apparent distress Respiratory: chest non-tender, lungs clear, normal breath sounds, no respiratory distress, no accessory muscle use Cardiovascular: normal peripheral pulses, regular rate, rhythm, no edema, no gallop, no JVD, no murmur Gastrointestinal: normal bowel sounds, non tender, soft, no organomegaly, no pulsatile mass Extremities: normal capillary refill Neurologic/Psychiatric: alert, normal mood/affect, oriented x 3 Skin: normal color, warm/dry Progress/Results/Core Measures Results/Orders Lab Results Laboratory Tests Test 02/21/20 17:55 02/21/20 18:05 Range/Units Urine Color YELLOW Urine Clarity CLEAR Urine pH 6.0 5-9 Urine Specific [place] >=1.030 1.016-1.022 Urine Protein NEGATIVE NEGATIVE Urine Glucose (UA) NEGATIVE NEGATIVE Urine Ketones NEGATIVE NEGATIVE Urine Nitrite NEGATIVE NEGATIVE Urine Bilirubin NEGATIVE NEGATIVE Urine Urobilinogen 0.2 < = 1.0 MG/DL Urine Leukocyte Esterase NEGATIVE NEGATIVE Urine RBC (Auto) NEGATIVE NEGATIVE Urine RBC RARE /HPF Urine WBC 2-5 /HPF Urine Squamous Epithelial Cells RARE /HPF Urine Crystals NONE /LPF Urine Bacteria TRACE /HPF Urine Casts NONE /LPF Urine Mucus SMALL H /LPF Urine Culture Indicated NO White Blood Count 10.8 4.3-11.0 10^3/uL Red Blood Count 4.94 4.35-5.85 10^6/uL Hemoglobin 16.5 13.3-17.7 G/DL Hematocrit 47 40-54 % Mean Corpuscular Volume 95 80-99 FL Mean Corpuscular Hemoglobin 33 25-34 PG Mean Corpuscular Hemoglobin Concent 35 32-36 G/DL Red Cell Distribution Width 12.2 10.0-14.5 % Platelet Count 190 130-400 10^3/uL Mean Platelet Volume 11.2 H 7.4-10.4 FL Neutrophils (%) (Auto) 69 42-75 % Lymphocytes (%) (Auto) 24 12-44 % Monocytes (%) (Auto) 6 0-12 % Eosinophils (%) (Auto) 1 0-10 % Basophils (%) (Auto) 0 0-10 % Neutrophils # (Auto) 7.4 1.8-7.8 X 10^3 Lymphocytes # (Auto) 2.6 1.0-4.0 X 10^3 Monocytes # (Auto) 0.7 0.0-1.0 X 10^3 Eosinophils # (Auto) 0.1 0.0-0.3 10^3/uL Basophils # (Auto) 0.0 0.0-0.1 10^3/uL Sodium Level 140 135-145 MMOL/L Potassium Level 3.8 3.6-5.0 MMOL/L Chloride Level 108 H 98-107 MMOL/L Carbon Dioxide Level 21 21-32 MMOL/L Anion Gap 11 5-14 MMOL/L Blood Urea Nitrogen 15 7-18 MG/DL Creatinine 0.99 0.60-1.30 MG/DL Estimat Glomerular Filtration Rate > 60 BUN/Creatinine Ratio 15 Glucose Level 110 H 70-105 MG/DL Calcium Level 9.2 8.5-10.1 MG/DL Corrected Calcium 8.8 8.5-10.1 MG/DL Total Bilirubin 0.6 0.1-1.0 MG/DL Aspartate Amino Transf (AST/SGOT) 23 5-34 U/L Alanine Aminotransferase (ALT/SGPT) 37 0-55 U/L Alkaline Phosphatase 79 40-136 U/L Total Protein 7.4 6.4-8.2 GM/DL Albumin 4.5 3.2-4.5 GM/DL Amylase Level 54 25-125 U/L Lipase 26 8-78 U/L My Shantel Funes - LYSSA BARGER Comprehensive Metabolic Panel (02/21/20 17:57) Lipase (02/21/20 17:57) Amylase (02/21/20 17:57) Ed Iv/Invasive Line Start (02/21/20 17:57) Cbc With Automated Diff (02/21/20 17:57) Ct Abd/Pelvis Wo(Kidney Stone) (02/21/20 17:57) Abdomen/Kub 1view (02/21/20 17:57) Ketorolac Injection (Toradol Injection) (02/21/20 18:00) Ns Iv 1000 Ml (Sodium Chloride 0.9%) (02/21/20 18:00) Fentanyl Injection (Sublimaze Injection (02/21/20 18:45) Rx-Hydrocodone/Apap 5-325 Mg (Rx-Vicodin (02/21/20 19:45) Medications Given in ED Current Medications Medications Dose Ordered Sig/Temo Route Start Time Stop Time Status Last Admin Dose Admin Fentanyl Citrate 50 mcg ONCE ONCE IVP 02/21/20 18:45 02/21/20 18:46 DC 02/21/20 19:06 50 MCG Ketorolac Tromethamine 30 mg ONCE ONCE IVP 02/21/20 18:00 02/21/20 18:01 DC 02/21/20 18:13 30 MG Vital Signs/I&O 02/21/20 02/21/20 02/21/20 17:45 19:06 19:48 Temp 36.8 36.8 36.8 Pulse 125 90 Resp 22 20 B/P (MAP) 139/91 (107) 125/88 (107) Pulse Ox 99 99 O2 Delivery Room Air Room Air Blood Pressure Mean: 107 Progress Progress Note : Time: 19:30 Progress Note I have seen and evaluated the patient. I've informed him of his laboratory and imaging studies. He reports that he is feeling much better after medication administration and his pain is almost gone and is now tolerable. He agrees with plan of care, plans for discharge, return precautions were given. Departure Impression Primary Impression: Right ureteral stone Disposition: HOME, SELF-CARE Condition: Stable/Unchanged Departure-Patient Inst. Decision time for Depature: 19:30 Referrals: NO,LOCAL PHYSICIAN (PCP) Primary Care Physician IRASEMA BENITEZ MD Patient Instructions: Kidney Stones in Adults Add. Discharge Instructions: Take medication as directed. Strain all urine and should you pass the kidney stone take it with you to your urology appointment. Call Dr. Mulligan office first thing tomorrow morning for an appointment time. Return back to the emergency room for worsening symptoms or concerns as needed. Follow-up with your primary care as needed. All discharge instructions reviewed with patient and/or family. Voiced understanding. Scripts Hydrocodone/Acetaminophen (Hydrocodone-Acetamin 5-325 mg) 1 Each Tablet 1 EACH PO Q6H PRN for PAIN-MILD (1-4), #14 TAB Prov: LYSSA BARGER 02/21/20 Sulfamethoxazole/Trimethoprim (Bactrim Ds Tablet) 1 Each Tablet 1 EACH PO BID for 7 Days, #14 TAB Prov: LYSSA BARGER 02/21/20 LYSSA BARGER Feb 21, 2020 19:34
[2020-02-21] MEDS ORDERED: RX-HYDROCODONE/APAP 5/325 MG #4 TAB PK PO PRN (19:45)
[2020-02-21 19:48] VITALS: BP 125/88
--- OUTSIDE RECORDS SUMMARY | 2020-02-21 22:14 | XMS REPORT | Continuity of Care Document ---
Author Organization Unknown Address Unknown Phone Unavailable Allergies Active Description Code Type Severity Reaction Onset Reported/Identified Relationship to Patient Clinical Status Yes No Known Drug Allergies [id number] Drug Allergy Unknown N/A 02/11/2019 Medications There is no data. Problems Date Dx Coded Attending Type Code Diagnosis Diagnosed By 02/11/2019 DENNY GUZMAN DO Ot F17.210 NICOTINE DEPENDENCE, CIGARETTES, UNCOMPL 02/11/2019 DENNY GUZMAN DO Ot K36 OTHER APPENDICITIS 02/11/2019 DENNY GUZMAN DO Ot Z87.442 PERSONAL HISTORY OF URINARY CALCULI 02/15/2019 DENNY GUZMAN DO Ot F17.210 NICOTINE DEPENDENCE, CIGARETTES, UNCOMPL 02/15/2019 DENNY GUZMAN DO Ot K36 OTHER APPENDICITIS 02/15/2019 DENNY GUZMAN DO Ot Z87.442 PERSONAL HISTORY OF URINARY CALCULI 02/15/2019 DENNY GUZMAN DO Ot F17.210 NICOTINE DEPENDENCE, CIGARETTES, UNCOMPL 02/15/2019 DENNY GUZMAN DO Ot K36 OTHER APPENDICITIS 02/15/2019 DENNY GUZMAN DO Ot Z87.442 PERSONAL HISTORY OF URINARY CALCULI 02/24/2019 DENNY GUZMAN DO Ot F17.210 NICOTINE DEPENDENCE, CIGARETTES, UNCOMPL 02/24/2019 DENNY GUZMAN DO Ot K38. 0 HYPERPLASIA OF APPENDIX 02/24/2019 DENNY GUZMAN DO Ot Z87.442 PERSONAL HISTORY OF URINARY CALCULI Procedures There is no data. Results Test Result Range Complete blood count (CBC) with automate d white blood cell (WBC) differential - 02/11/19 15:38 Blood leukocytes automated count (number/volume) 10.8 10*3/uL 4.3-11.0 Blood erythrocytes automated count (number/volume) 4.95 10*6/uL 4.35-5.85 Venous blood hemoglobin measurement (mass/volume) 16.2 g/dL 13.3-17.7 Blood hematocrit (volume fraction) 48 % 40-54 Automated erythrocyte mean corpuscular volume 96 [ foz_us] 80-99 Automated erythrocyte mean corpuscular h emoglobin (mass per erythrocyte) 33 pg 25-34 Automated erythrocyte mean corpuscular h emoglobin concentration measurement (mass/volume) 34 g/dL 32-36 Automated erythrocyte distribution width ratio 12. 0 % 10.0- 14.5 Automated blood platelet count (count/volume) 190 10*3/uL 130-400 Automated blood platelet mean volume measurement 11.1 [foz_us] 7.4-10.4 Automated blood neutrophils/100 leukocytes 53 % 42-75 Automated blood lymphocytes/100 leukocytes 36 % 12-44 Blood monocytes/100 leukocytes 8 % 0-12 Automated blood eosinophils/100 leukocytes 2 % 0-10 Automated blood basophils/100 leukocytes 1 % 0-10 Blood neutrophils automated count (number/volume) 5.7 10*3 1.8-7.8 Blood lymphocytes automated count (number/volume) 3.9 10*3 1.0-4.0 Blood monocytes automated count (number/volume) 0. 9 10*3 0.0-1.0 Automated eosinophil count 0.2 10*3/uL 0 .0-0.3 Automated blood basophil count (count/volume) 0.1 10*3/uL 0.0-0.1 Comprehensive metabolic panel - 02/11/19 15:38 Serum or plasma sodium measurement (moles/volume) 141 mmol/L 135-145 Serum or plasma potassium measurement (moles/volume) 4.3 mmol/L 3.6-5.0 Serum or plasma chloride measurement (moles/volume) 105 mmol/L 98-107 Carbon dioxide 25 mmol/L 21-32 Serum or plasma anion gap determination (moles/volume) 11 mmol/L 5-14 Serum or plasma urea nitrogen measurement (mass/volume ) 8 mg/dL 7-18 Serum or plasma creatinine measurement (mass/volume) 1.11 mg/dL 0.60-1.30 Serum or plasma urea nitrogen/creatinine mass ratio 7 NRG Serum or plasma creatinine measurement w ith calculation of estimated glomerular filtration rate > NRG Serum or plasma glucose measurement (mass/volume) 85 mg/dL 70-105 Serum or plasma calcium measurement (mass/volume) 10.0 mg/dL 8.5-10.1 Serum or plasma total bilirubin measurement (mass/volu me) 0.3 mg/dL 0.1-1.0 Serum or plasma alkaline phosphatase dia surement (enzymatic activity/volume) 98 U/L 40-136 Serum or plasma aspartate aminotransfera se measurement (enzymatic activity/volume) 29 U/L 5-34 Serum or plasma alanine aminotransferase measurement (enzymatic activity/volume) 59 U/L 0-55 Serum or plasma protein measurement (mass/volume) 8.0 g/dL 6.4-8.2 Serum or plasma albumin measurement (mass/volume) 5.0 g/dL 3.2-4.5 Serum ragweed IgE antibody assay - 02/11 15:58 Serum ragweed IgE antibody assay <20 50-240 Serum or plasma C reactive protein measu rement (mass/volume) - 02/11/19 16:13 Serum or plasma C reactive protein measurement (mass/v olume) 0.12 mg/dL 0.00-0.50 Complete urinalysis with reflex to cultu re - 02/11/19 16:15 Urine color determination YELLOW NRG Urine clarity determination CLEAR NR G Urine pH measurement by test strip 6 5-9 Specific gravity of urine by test strip 1.010 1.016-1.022 Urine protein assay by test strip, semi-quantitative NEGATIVE NEGATIVE Urine glucose detection by automated test strip NE GATIVE NEGATIVE Erythrocytes detection in urine sediment by light micr oscopy NEGATIVE NEGATIVE Urine ketones detection by automated test strip NE GATIVE NEGATIVE Urine nitrite detection by test strip NEGATIVE NEGATIVE Urine total bilirubin detection by test strip NEGA TIVE NEGATIVE Urine urobilinogen measurement by automated test strip (mass/volume) NORMAL NORMAL Urine leukocyte esterase detection by dipstick NEG ATIVE NEGATIVE Automated urine sediment erythrocyte cou nt by microscopy (number/high power field) NONE NRG Automated urine sediment leukocyte count by microscopy (number/high power field) RARE NRG Bacteria detection in urine sediment by light microsco py NEGATIVE NRG Squamous epithelial cells detection in u rine sediment by light microscopy RARE NRG Crystals detection in urine sediment by light microsco py NONE NRG Casts detection in urine sediment by light microscopy NONE NRG Mucus detection in urine sediment by light microscopy NEGATIVE NRG Complete urinalysis with reflex to culture NO NRG Encounters ACCT No. Visit Date/Time Discharge Status Pt. Type Provider Facility Loc./Unit Complaint [id number] 02/13/2020 14:20:00 02/13/2020 23:59: 59 CLS Outpatient [facility] [id number] 02/11/2019 18:07:00 019 22:45:00 DIS Outpatient DENNY GUZMAN DO Via [facility] APP[facility]
== END 2020-02-21 19:48 | disposition home or self-care (01) ==
LOC: EDUNIT# 17:22 → ER 17:24
DX: N20.1 Calculus of ureter (principal); F17.210 Nicotine dependence, cigarettes, uncomplicated
CPT/HCPCS: 36415; 74018; 74176; 80053; 81000; 82150; 83690; 85025

== ENCOUNTER 2021-02-24 18:53 | Emergency (ER) | payer SELFPAY ==
[~2021-02-24 18:53] MED LIST changes: +SULF1TAB38 PO
[2021-02-24] MEDS ORDERED: PROCHLORPERAZINE 10 MG/2ML INJ (COMPAZINE) ONE (20:19)
[2021-02-24] MEDS ORDERED: diphenhydrAMINE 25 MG TAB (BENADRYL) PO ONE (20:19)
[2021-02-24] MEDS ORDERED: KETOROLAC 60 MG/2 ML VIAL ONE (20:19)
[2021-02-24] MEDS ORDERED: ONDANSETRON 4 MG (ZOFRAN) ORAL DISSOLVE TAB PO STA (20:50)
--- NOTE | 2021-02-24 20:55 | ED Cough/URI ---
General Chief Complaint: Cough/Cold/Flu Symptoms Stated Complaint: HEADACHE,FEVER,CHILLS,VOMITING,BODY ACHES Nursing Triage Note: TO ED VIA POV AND AMBULATORY TO ROOM 9 WITH C/O BEING DIAGNOSED WITH COVID Thursday02/18/21. SYMPTOMS BEGAN THE THURSDAY BEFORE. STATES HE JUST DOESN'T FEEL WELL. DID NOT HAVE COVID VACCINE. 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 History of Present Illness Date Seen by Provider: Feb 24, 2021 Time Seen by Provider: 19:45 Initial Comments 45-year-old male presents with general malaise after being diagnosed with Covid approximately 5 days ago. He reports his symptoms have been intermittent since diagnosis. He has had 3 episodes of vomiting today, he has been trying to take Sprite and Pedialyte. He is taking multivitamins and 81 mg of aspirin daily. He took ibuprofen 400 mg and Tylenol 650 mg approximately 6 hours ago, he denies fever. He denies chest pain or difficulty breathing. Timing/Duration: intermittent Severity/Quality: mild, dry cough Prior Episodes/Possible Cause: no prior episodes Associated Symptoms: cough, headache, muscle aches, nasal congestion, shortness of breath Allergies and Home Medications Allergies Coded Allergies: No Known Drug Allergies (Unverified , 02/11/19) Home Medications Docusate Sodium 100 Mg Capsule, 100 MG PO BID Prescribed by: DENNY GUZMAN on 02/11/191955 Hydrocodone Bit/Acetaminophen 1 Tab Tab, 1-2 TAB PO Q6H PRN for PAIN-MODERATE Prescribed by: DENNY GUZMAN on 02/11/191955 Hydrocodone/Acetaminophen 1 Each Tablet, 1 EACH PO Q6H PRN for PAIN-MILD (1-4) Prescribed by: LYSSA BARGER on 02/21/201932 Sulfamethoxazole/Trimethoprim 1 Each Tablet, 1 EACH PO BID Prescribed by: LYSSA BARGER on 02/21/201932 Patient Home Medication List Home Medication List Reviewed: Yes Review of Systems Review of Systems Constitutional: no symptoms reported, see HPI Respiratory: see HPI, cough, dyspnea on exertion Gastrointestinal: see HPI; No abdominal pain; nausea; No vomiting Genitourinary: no symptoms reported, see HPI Musculoskeletal: no symptoms reported, see HPI All Other Systems Reviewed Negative Unless Noted: Yes Past Xlrrqnb-Ggrrdk-Ihmfbi Hx Immunizations Up To Date COVID19 Vaccine Material Controller: NO VACCINE Seasonal Allergies Seasonal Allergies: No Past Medical History Surgeries: Yes (LT ROTATOR CUFF, HERNIA) Abdominal, Appendectomy, Orthopedic Respiratory: No Cardiac: No Neurological: No Genitourinary: Yes Kidney Stones, UTI-Chronic Gastrointestinal: No Hiatal Hernia Musculoskeletal: No Endocrine: No HEENT: No Cancer: No Psychosocial: No Blood Disorders: No Family Medical History Reviewed Nursing Family Hx No Pertinent Family Hx Physical Exam Vital Signs - First Documented 02/24/21 19:41 Temp 36.7 Pulse 95 Resp 16 B/P (MAP) 139/99 (112) Pulse Ox 97 O2 Delivery Room Air Capillary Refill : Less Than 3 Seconds Height: 5'7.00" Weight: 150lbs. oz. 68.606034zv; BMI Method:Stated General Appearance: WD/WN, mild distress HEENT: PERRL/EOMI, normal ENT inspection, TMs normal, pharynx normal Neck: non-tender, full range of motion, supple, normal inspection Respiratory: chest non-tender, lungs clear, normal breath sounds, no respiratory distress Cardiovascular: normal peripheral pulses, regular rate, rhythm Gastrointestinal: normal bowel sounds, non tender, soft; No guarding, No rebound, No tenderness Extremities: normal range of motion, non-tender, normal inspection, no pedal edema, no calf tenderness, normal capillary refill Neurologic/Psychiatric: no motor/sensory deficits, alert, normal mood/affect, oriented x 3 Skin: normal color, warm/dry Progress/Results/Core Measures Suspected Sepsis SIRS Temperature: Pulse: 95 Respiratory Rate: 16 Blood Pressure 139 /99 Mean: 112 Results/Orders Lab Results Laboratory Tests Test 02/24/21 19:31 Range/Units Influenza Type A (RT-PCR) Not Detected Not Detecte Influenza Type B (RT-PCR) Not Detected Not Detecte SARS-CoV-2 RNA (RT-PCR) Detected H Not Detecte My Orders Orders - DAVIS FOFANA Covid 19 Inhouse Test (02/24/21 19:11) Influenza A And B By Pcr (02/24/21 19:11) Diphenhydramine Tablet (Benadryl Tablet) (02/24/21 20:19) Ketorolac Injection (Toradol Injection) (02/24/21 20:19) Prochlorperazine Injection (Compazine In (02/24/21 20:19) Ondansetron Oral Dissolve Tab (Zofran (02/24/21 20:50) Medications Given in ED Current Medications Medications Dose Ordered Sig/Temo Route Start Time Stop Time Status Last Admin Dose Admin Diphenhydramine HCl 25 mg STK-MED ONCE PO 02/24/21 20:19 02/24/21 20:23 DC 02/24/21 20:20 25 MG Ketorolac Tromethamine 60 mg STK-MED ONCE .ROUTE 02/24/21 20:19 02/24/21 20:23 DC 02/24/21 20:20 60 MG Prochlorperazine Edisylate 10 mg STK-MED ONCE .ROUTE 02/24/21 20:19 02/24/21 20:23 DC 02/24/21 20:20 10 MG Vital Signs/I&O 02/24/21 02/24/21 19:41 19:41 Temp 36.7 Pulse 95 Resp 16 B/P (MAP) 139/99 (112) Pulse Ox 97 O2 Delivery Room Air Room Air Capillary Refill : Less Than 3 Seconds Blood Pressure Mean: 112 Progress Note : Time: 19:45 Progress Note Patient seen and evaluated, he is afebrile and his SaO2 is 96 to 99% on room air. Discussed the progression and intermittent symptoms that he will experience with Covid. We will treat the headache with Toradol 60 mg IM, Compazine 10 mg IM, and Benadryl 50 mg p.o. Patient was able to drink 30 ounces of water. Will monitor, if he is not showing improvement, will start IV and check labs. Stressed importance of receiving the vaccine, when able to. 2030 patient resting, no distress, VS stable. SaO2 97% 2100 patient reports improvement, headache resolved. Continuing to drink water. Requesting discharge, "I have a 4 month old at home and need to get home." Discharge instructions and return precautions reviewed with the patient. All questions answered. Departure Impression Primary Impression: COVID-19 Additional Impressions: Head ache Qualified Codes: R51.9 - Headache, unspecified Nausea Disposition: HOME, SELF-CARE Condition: Improved Departure-Patient Inst. Referrals: [facility] NO,LOCAL PHYSICIAN (PCP) Primary Care Physician Patient Instructions: COVID-19 (DC) Add. Discharge Instructions: Increase your oral fluids, 16 ounces every 2 hours while awake. Continue to take the aspirin 81 mg daily, and the vitamin supplements. You may take Mucinex 1 tablet every 12 hours with a full glass of water for respiratory congestion. You may use gzha-nct-wxolhut Afrin for nasal congestion. Alternate between ibuprofen 600 mg and Tylenol 650 mg every 4 hours for fever or pain. Call your primary care provider if your symptoms are not improving or worsen. Please receive the Covid vaccine when you are able to, check with the [facility] Dept. Return to the Emergency dept for new, urgent health care needs. All discharge instructions reviewed with patient and/or family. Voiced understanding. DAVIS FOFANA Feb 24, 2021 20:55
[2021-02-24 21:30] VITALS: BP 125/97
[2021-02-24] MEDS ORDERED: RX-ONDANSETRON 4 MG ODT (ZOFRAN) PPK #4 PO STA (21:30)
== END 2021-02-24 21:30 | disposition home or self-care (01) ==
LOC: EDUNIT# 18:53 → ER 18:54
DX: U07.1 COVID-19 (principal); R11.2 Nausea with vomiting, unspecified; Z79.82 Long term (current) use of aspirin
CPT/HCPCS: 87636

== ENCOUNTER 2023-05-10 19:29 | Emergency (ER) | payer SELFPAY ==
[~2023-05-10] VITALS: Ht 167 cm; Wt 71.6 kg
[2023-05-10 21:29] LABS: BASOPHILS % (AUTO) 0 % (0-10); EOSINOPHILS % (AUTO) 0 % (0-10); HEMATOCRIT 48 % (40-54); HEMOGLOBIN 16.4 g/dL (13.3-17.7); LYMPHOCYTES # (AUTO) 1.6 10^3/uL (1.0-4.0); LYMPHOCYTES % (AUTO) 13 % (12-44); MEAN CORPUSCULAR HEMOGLOBIN 32 pg (25-34); MEAN CORPUSCULAR HGB CONC 35 g/dL (32-36); MEAN CORPUSCULAR VOLUME 93 fL (80-99); MEAN PLATELET VOLUME 11.6 fL (9.0-12.2); MONOCYTES # (AUTO) 0.6 10^3/uL (0.0-1.0); MONOCYTES % (AUTO) 5 % (0-12); NEUTROPHILS # (AUTO) 10.1 10^3/uL (1.8-7.8); NEUTROPHILS % (AUTO) 81 % (42-75); PLATELET COUNT 235 10^3/uL (130-400); WHITE BLOOD COUNT 12.5 10^3/uL (4.3-11.0)
[2023-05-10] MEDS ORDERED: IOHEXOL 350 MG/ML 100 ML (OMNIPAQUE 350) VIAL IV ONE (21:30)
[2023-05-10] MEDS ORDERED: HOLD METFORMIN - RECEIVED CONTRAST 20 ML VIAL IV SCH (21:30)
[2023-05-10] MEDS ORDERED: NS IV 1000 ML 1,000 ML IV SCH (21:30)
[2023-05-10] MEDS ORDERED: NS 100 ML (IVPB) BAG IV ONE (21:30)
[2023-05-10] MEDS ORDERED: fentaNYL INJECTION 100 MCG/2 ML VIAL IVP ONE (21:30)
--- NOTE | 2023-05-10 21:36 | ED Abdominal Pain ---
General Chief Complaint: Abdominal/GI Problems Stated Complaint: VOMITING BLOOD Nursing Triage Note: PATIENT STATES HAS AN UMBILICAL HERNIA, STATES PAINFUL, STATES ALSO HAS BEEN VOMITTING ON/OFF SINCE THURSDAY, STATES VARIES FROM DARK BROWN TO JELLY RED. PATIENT DENIES DIARRHEA, STATES HAS BEEN CONSTIPATED. Source of Information: Patient Exam Limitations: No Limitations History of Present Illness Date Seen by Provider: May 10, 2023 Time Seen by Provider: 21:12 Initial Comments 47-year-old male presents to the ED with complaint of abdominal pain mostly located at his umbilicus. States that he has had this pain for months, but states it got worse over the last week. He also reports epigastric pain, and bilateral upper quadrant abdominal pain. He reports that he has been vomiting, approximately 2 times a day for the last week. Reports it has been brown in color as well as red in color. He states that when it is red, it is thick like jelly. When it is brown, it looks like coffee grounds. He states that he has been constipated, he states that he normally does not have issues with this. Reports he had a very small hard black-colored stool today. Last bowel movement was 3 to 4 days ago and was also very small, hard, and black in color. He reports he has been having this with, and feeling warm, has not checked his temperature. He denies dysuria, but states at times he feels like he has a weaker stream than normal. He states he has been taking ibuprofen approximately once a day the past week, denies chronic use of ibuprofen. Denies alcohol and drug use. Reports he used to smoke tobacco, quit 3 years ago. Still uses a synthetic nicotine. Allergies and Home Medications Allergies Coded Allergies: naproxen (Verified Allergy, Unknown, 05/10/23) Patient Home Medication List Home Medication List Reviewed: Yes Ciprofloxacin HCl (Ciprofloxacin HCl) 500 Mg Tablet, 500 MG PO BID Prescribed by: Ryann Ledezma on 05/10/232328 Docusate Sodium (Colace) 100 Mg Capsule, 100 MG PO BID Prescribed by: DENNY GUZMAN on 02/11/191955 Hydrocodone Bit/Acetaminophen (Lortab 5 Mg Tablet) 1 Tab Tab, 1-2 TAB PO Q6H PRN for PAIN-MODERATE Prescribed by: DENNY GUZMAN on 02/11/191955 Hydrocodone/Acetaminophen (Hydrocodone-Acetamin 5-325 mg) 1 Each Tablet, 1 EACH PO Q6H PRN for PAIN-MILD (1-4) Prescribed by: LYSSA BARGER on 02/21/201932 Metronidazole (Metronidazole) 500 Mg Tablet, 500 MG PO TID Prescribed by: Ryann Ledezma on 05/10/232328 Sulfamethoxazole/Trimethoprim (Bactrim Ds Tablet) 1 Each Tablet, 1 EACH PO BID Prescribed by: LYSSA BARGER on 02/21/201932 Review of Systems Review of Systems Constitutional: see HPI Past Usilvxx-Drcchi-Shodta Hx Seasonal Allergies Seasonal Allergies: No Past Medical History Surgeries: Yes (LT ROTATOR CUFF, HERNIA) Abdominal, Appendectomy, Orthopedic Respiratory: No Cardiac: No Neurological: No Genitourinary: Yes Kidney Stones, UTI-Chronic Gastrointestinal: No Hiatal Hernia Musculoskeletal: No Endocrine: No HEENT: No Cancer: No Psychosocial: No Blood Disorders: No Family Medical History No Pertinent Family Hx Physical Exam Vital Signs Vital Signs - First Documented 05/10/23 20:20 Temp 37.0 Pulse 114 Resp 20 B/P (MAP) 145/102 (116) Pulse Ox 95 O2 Delivery Room Air Capillary Refill : Less Than 3 Seconds Height/Weight/BMI Height: 5'7.00" Weight: 150lbs. oz. 68.180084wv; 25.00 BMI Method:Stated General Appearance: WD/WN, no apparent distress Neck: supple, normal inspection Respiratory: lungs clear, normal breath sounds, no respiratory distress, no accessory muscle use Cardiovascular: regular rate, rhythm Gastrointestinal: normal bowel sounds, soft; No guarding; tenderness (Epigastric, right upper quadrant, left upper quadrant, umbilical region. Mild tenderness bilateral lower quadrants.) Extremities: normal range of motion, normal inspection Neurologic/Psychiatric: alert, normal mood/affect Skin: normal color, warm/dry Progress/Results/Core Measures Results/Orders Lab Results Laboratory Tests Test 05/10/23 20:39 05/10/23 20:50 Range/Units White Blood Count 12.5 H 4.3-11.0 10^3/uL Red Blood Count 5.13 4.30-5.52 10^6/uL Hemoglobin 16.4 13.3-17.7 g/dL Hematocrit 48 40-54 % Mean Corpuscular Volume 93 80-99 fL Mean Corpuscular Hemoglobin 32 25-34 pg Mean Corpuscular Hemoglobin Concent 35 32-36 g/dL Red Cell Distribution Width 11.4 10.0-14.5 % Platelet Count 235 130-400 10^3/uL Mean Platelet Volume 11.6 9.0-12.2 fL Immature Granulocyte % (Auto) 0 % Neutrophils (%) (Auto) 81 H 42-75 % Lymphocytes (%) (Auto) 13 12-44 % Monocytes (%) (Auto) 5 0-12 % Eosinophils (%) (Auto) 0 0-10 % Basophils (%) (Auto) 0 0-10 % Neutrophils # (Auto) 10.1 H 1.8-7.8 10^3/uL Lymphocytes # (Auto) 1.6 1.0-4.0 10^3/uL Monocytes # (Auto) 0.6 0.0-1.0 10^3/uL Eosinophils # (Auto) 0.0 0.0-0.3 10^3/uL Basophils # (Auto) 0.0 0.0-0.1 10^3/uL Immature Granulocyte # (Auto) 0.0 0.0-0.1 10^3/uL Sodium Level 139 135-145 MMOL/L Potassium Level 4.5 3.6-5.0 MMOL/L Chloride Level 104 98-107 MMOL/L Carbon Dioxide Level 22 21-32 MMOL/L Anion Gap 13 5-14 MMOL/L Blood Urea Nitrogen 11 7-18 MG/DL Creatinine 1.37 H 0.60-1.30 MG/DL Estimat Glomerular Filtration Rate 64 BUN/Creatinine Ratio 8 Glucose Level 116 H 70-105 MG/DL Calcium Level 9.4 8.5-10.1 MG/DL Corrected Calcium 8.5-10.1 MG/DL Total Bilirubin 0.5 0.1-1.0 MG/DL Aspartate Amino Transf (AST/SGOT) 26 5-34 U/L Alanine Aminotransferase (ALT/SGPT) 36 0-55 U/L Alkaline Phosphatase 103 40-136 U/L Total Protein 7.5 6.4-8.2 GM/DL Albumin 4.7 H 3.2-4.5 GM/DL Lipase 12 8-78 U/L Urine Color YELLOW Urine Clarity CLEAR Urine pH 6.0 5-9 Urine Specific [place] 1.010 L 1.016-1.022 Urine Protein 1+ H NEGATIVE Urine Glucose (UA) NEGATIVE NEGATIVE Urine Ketones NEGATIVE NEGATIVE Urine Nitrite NEGATIVE NEGATIVE Urine Bilirubin NEGATIVE NEGATIVE Urine Urobilinogen 0.2 < = 1.0 MG/DL Urine Leukocyte Esterase NEGATIVE NEGATIVE Urine RBC (Auto) NEGATIVE NEGATIVE Urine RBC NONE /HPF Urine WBC RARE /HPF Urine Squamous Epithelial Cells RARE /HPF Urine Crystals NONE /LPF Urine Bacteria TRACE /HPF Urine Casts NONE /LPF Urine Mucus NEGATIVE /LPF Urine Culture Indicated NO My Orders Orders - RYANN MOODY APRN Ua Culture If Indicated (05/10/23 21:12) Comprehensive Metabolic Panel (05/10/23 21:21) Lipase (05/10/23 21:21) Ed Iv/Invasive Line Start (05/10/23 21:21) Cbc And Automated Diff (05/10/23 21:21) Ct Abdomen/Pelvis W (05/10/23 21:21) Ns Iv 1000 Ml (Ns Iv 1000 Ml) (05/10/23 21:30) Fentanyl Injection (Fentanyl Injection (05/10/23 21:30) Iohexol Injection (Omnipaque 350 Mg/Ml 1 (05/10/23 21:30) Received Contrast (Hold Metformin- Contr (05/10/23 21:30) Ns (Ivpb) 100 Ml (Sodium Chloride 0.9% 1 (05/10/23 21:30) Ciprofloxacin Tablet (Ciprofloxacin Tabl (05/10/23 23:15) Metronidazole Tablet (Metronidazole Tabl (05/10/23 23:15) Medications Given in ED Current Medications Medications Dose Ordered Sig/Temo Route Start Time Stop Time Status Last Admin Dose Admin Ciprofloxacin 500 mg ONCE ONCE PO 05/10/23 23:15 05/10/23 23:17 DC 05/10/23 23:26 500 MG Fentanyl Citrate 50 mcg ONCE ONCE IVP 05/10/23 21:30 05/10/23 21:31 DC 05/10/23 21:29 50 MCG Iohexol 100 ml ONCE ONCE IV 05/10/23 21:30 05/10/23 21:31 DC 05/10/23 21:48 80 ML Metronidazole 500 mg ONCE ONCE PO 05/10/23 23:15 05/10/23 23:17 DC 05/10/23 23:27 500 MG Sodium Chloride 100 ml ONCE ONCE IV 05/10/23 21:30 05/10/23 21:31 DC 05/10/23 21:48 100 ML Vital Signs/I&O 05/10/23 05/10/23 20:20 23:45 Temp 37.0 Pulse 114 Resp 20 B/P (MAP) 145/102 (116) 119/90 Pulse Ox 95 O2 Delivery Room Air Blood Pressure Mean: 116 Progress Progress Note : Progress Note Patient seen and evaluated, resting in bed, no acute distress. Based on exam and symptoms, work-up initiated including CBC, CMP, lipase, UA, CT abdomen p alexandro. IV fluids and fentanyl ordered. Will perform a fecal Hemoccult. [address] reviewed. CBC shows slightly elevated WBC 12.5, slightly elevated neutrophil percentage 81. CMP shows elevated creatinine 1.37, decreased GFR is 64. Lipase normal. Urinalysis negative for infection. CT shows persistent wall thickening and decompressed appearance of the colon from the descending colon all the way to the rectum, likely colitis. Remainder of the exam shows no acute abdominal or pelvic process. No umbilical hernia reported by the radiologist, possible fat-containing umbilical hernia on my review. If present it is very small. Fecal occult negative. I called and spoke with Dr. Herrera, surgery. He recommends Cipro and Flagyl and to follow-up with him in the office. States that patient will likely need a colonoscopy. Results and plan of care discussed with patient. Will give the first dose of the Cipro and Flagyl tonight. Patient is stable for discharge. Discharge instructions and return precautions provided. Diagnostic Imaging Diagonstic Imaging: CT Plain Films/CT/US/NM/MRI: abdomen, pelvis Comments [facility], [place] NAME: ANTONIO DUMAS [facility] REC#: [id number] PT STATUS: REG ER : 1975 PHYSICIAN: RYANN MOODY APRN ADMIT DATE: 05/10/23/ER Signed Date of Exam:05/10/23 CT ABDOMEN/PELVIS W CLINICAL INDICATION: Patient had appendix removed. Patient states he has an umbilical hernia which is painful. Patient has been vomiting on and off since Thursday which variates from dark brown to gently red. Patient denies diarrhea and has been constipated. EXAM: Axial CT scan of the abdomen and pelvis performed with 80 cc of Omnipaque 350 IV contrast. Sagittal and coronal reformatted images were created. Auto Exposure Controls were utilized during the CT exam to meet ALARA standards for radiation dose reduction. COMPARISON: CT scan of the abdomen and pelvis without contrast dated 02/21/2020. FINDINGS: The visualized lung bases are clear. Bones show no significant abnormality. There is mild diffuse low-density seen throughout the liver which may related to mild diffuse fatty infiltration. The liver is otherwise unremarkable. The spleen, pancreas, gallbladder, and adrenal glands are unremarkable. There is a 12 mm cyst involving the medial posterior aspect of the right kidney. Otherwise, both kidneys are unremarkable. There is no stone, solid mass, or hydronephrosis. There is a small amount of fluid within the bladder. The bladder is otherwise unremarkable. There is persistent wall thickening and decompressed appearance involving the rectum, sigmoid colon, and descending colon which were also noted on the prior study. These findings may be related to colitis. There are appendectomy changes again seen. There is no intra-abdominal free air or free fluid. There are small mesenteric lymph nodes again noted. The stomach is decompressed and unremarkable. The small bowel shows no significant abnormality. The extraabdominal and extrapelvic soft tissue structures are unremarkable. IMPRESSION: 1: There is persistent wall thickening and decompressed appearance of the colon seen from the descending colon all the way to the rectum. Colitis may be considered. 2: The remainder of this exam shows no acute abdominal or pelvic process. Dictated by: Dictated on workstation # [id number] Dict: 05/10/232209 Trans: 05/10/232222 [id number] Interpreted by: DORIS RAMIREZ MD Electronically signed by: DORIS RAMIREZ MD 05/10/232222 Departure Impression Primary Impression: Colitis Disposition: 01 HOME, SELF-CARE Condition: Stable Departure-Patient Inst. Decision time for Depature: 23:27 Referrals: PABLO HERRERA MD NO,LOCAL PHYSICIAN (PCP) Primary Care Physician Patient Instructions: Colitis (DC) Add. Discharge Instructions: Complete full course of both antibiotics as prescribed. Call Dr. Herrera's office tomorrow to schedule a follow-up appointment. Return for any new, concerning, or worsening symptoms. All discharge instructions reviewed with patient and/or family. Voiced understanding. Scripts Metronidazole (Metronidazole) 500 Mg Tablet 500 MG PO TID for 10 Days, #30 TAB 0 Refills Prov: RYANN MOODY APRN 05/10/23 Ciprofloxacin HCl (Ciprofloxacin HCl) 500 Mg Tablet 500 MG PO BID for 10 Days, #20 TAB 0 Refills Prov: RYANN MOODY APRN 05/10/23 RYANN MOODY APRN May 10, 2023 21:36
[2023-05-10 21:53] LABS: ALANINE AMINOTRANSFERASE 36 U/L (0-55); ALBUMIN 4.7 GM/DL (3.2-4.5); ALKALINE PHOSPHATASE 103 U/L (40-136); BILIRUBIN,TOTAL 0.5 MG/DL (0.1-1.0); BUN/CREATININE RATIO 8; CALCIUM 9.4 MG/DL (8.5-10.1); CARBON DIOXIDE 22 MMOL/L (21-32); CHLORIDE 104 MMOL/L (98-107); CREATININE SERUM 1.37 MG/DL (0.60-1.30); GFR ESTIMATED 64; GLUCOSE 116 MG/DL (70-105); LIPASE 12 U/L (8-78); POTASSIUM 4.5 MMOL/L (3.6-5.0); SODIUM 139 MMOL/L (135-145); TOTAL PROTEIN 7.5 GM/DL (6.4-8.2)
--- NOTE | 2023-05-10 22:18 | Diagnostic Imaging Report ---
CLINICAL INDICATION: Patient had appendix removed. Patient states he has an umbilical hernia which is painful. Patient has been vomiting on and off since Thursday which variates from dark brown to gently red. Patient denies diarrhea and has been constipated. EXAM: Axial CT scan of the abdomen and pelvis performed with 80 cc of Omnipaque 350 IV contrast. Sagittal and coronal reformatted images were created. Auto Exposure Controls were utilized during the CT exam to meet ALARA standards for radiation dose reduction. COMPARISON: CT scan of the abdomen and pelvis without contrast dated 02/21/2020. FINDINGS: The visualized lung bases are clear. Bones show no significant abnormality. There is mild diffuse low-density seen throughout the liver which may related to mild diffuse fatty infiltration. The liver is otherwise unremarkable. The spleen, pancreas, gallbladder, and adrenal glands are unremarkable. There is a 12 mm cyst involving the medial posterior aspect of the right kidney. Otherwise, both kidneys are unremarkable. There is no stone, solid mass, or hydronephrosis. There is a small amount of fluid within the bladder. The bladder is otherwise unremarkable. There is persistent wall thickening and decompressed appearance involving the rectum, sigmoid colon, and descending colon which were also noted on the prior study. These findings may be related to colitis. There are appendectomy changes again seen. There is no intra-abdominal free air or free fluid. There are small mesenteric lymph nodes again noted. The stomach is decompressed and unremarkable. The small bowel shows no significant abnormality. The extraabdominal and extrapelvic soft tissue structures are unremarkable. IMPRESSION: 1: There is persistent wall thickening and decompressed appearance of the colon seen from the descending colon all the way to the rectum. Colitis may be considered. 2: The remainder of this exam shows no acute abdominal or pelvic process. Dictated by: Dictated on workstation # [id number]
[2023-05-10] MEDS ORDERED: metroNIDAZOLE 500 MG TABLET PO ONE (23:15)
[2023-05-10] MEDS ORDERED: CIPROFLOXACIN 500 MG TABLET PO ONE (23:15)
[2023-05-10 23:16] LABS: BACTERIA,URINE TRACE /HPF; BILIRUBIN,URINE NEGATIVE (NEGATIVE); CLARITY,URINE CLEAR; COLOR,URINE YELLOW; GLUCOSE, URINE (UA) NEGATIVE (NEGATIVE); KETONES,URINE NEGATIVE (NEGATIVE); LEUKOCYTE ESTERASE ,URINE NEGATIVE (NEGATIVE); NITRITE,URINE NEGATIVE (NEGATIVE); PROTEIN,URINE 1+ (NEGATIVE); SQUAMOUS EPITHELIAL CELL,UR RARE /HPF; WBC,URINE RARE /HPF
[2023-05-10] MEDS ORDERED: METR-145 PO (23:29)
[2023-05-10] MEDS ORDERED: CIPR500T5 PO (23:29)
[2023-05-10 23:45] VITALS: BP 119/90
== END 2023-05-10 23:45 | disposition home or self-care (01) ==
LOC: EDUNIT# 19:29 → ER 19:31
DX: K52.9 Noninfective gastroenteritis and colitis, unspecified (principal); Z87.891 Personal history of nicotine dependence
CPT/HCPCS: 36415; 74177; 80053; 81000; 83690; 85025